=== PATIENT | female | born 1945 | race Two or more races ===

== ENCOUNTER 2019-07-03 06:30 | Day surgery (SDC) | payer OTHER ==
[~2019-07-03 06:30] MED LIST: COZAAR50 MG PO; MAGNESIUM400 M1 PO; METFORMIN HCL1000 M2 PO; NORVASC5 MG PO; OXY; ZOCOR40 MG PO
== END 2019-07-03 15:30 | disposition home or self-care (01) ==
LOC: CIR.AMB 06:30
DX: D12.8 Benign neoplasm of rectum (principal); K64.4 Residual hemorrhoidal skin tags; K64.8 Other hemorrhoids; K64.2 Third degree hemorrhoids